=== PATIENT | female | born 1985 | race Caucasian/White ===

== ENCOUNTER → 2022-11-30 08:53 | Outpatient (BNVA) | payer OTHER, SELFPAY | PROVIDERS: PCP Nurse Practitioner Family; Visit Provider Advanced Practice Midwife | DX: Z30.432 Encounter for removal of intrauterine contraceptive device (principal); Z30.09 Encounter for other general counseling and advice on contraception; Z30.011 Encounter for initial prescription of contraceptive pills | CPT/HCPCS: 58301 ==

== ENCOUNTER 2023-03-11 07:59 | Outpatient (REF) | payer OTHER, SELFPAY ==
[2023-03-18 03:19] LABS: HPV mRNA E6/E7 rflx Not Detected (Not Detected)
== END 2023-03-11 08:00 | disposition home or self-care (01) ==
LOC: HO.LNP 07:59
PROVIDERS: PCP Nurse Practitioner Family; Visit Provider Advanced Practice Midwife
DX: Z01.419 Encounter for gynecological examination (general) (routine) without abnormal findings (principal); Z11.51 Encounter for screening for human papillomavirus (HPV)
CPT/HCPCS: 87624; 88142

== ENCOUNTER 2023-03-11 07:59 | Outpatient (AMB) | payer OTHER, SELFPAY ==
--- NOTE | 2023-03-11 08:10 | A.OFFVIS_ITS ---
Intake Vital Signs 03/11/23 08:12 Height 5 ft 4 in Weight 248 lb BMI 42.6 BP 122/76 Intake Visit Reasons: Annual/ 3 month pill check Intake Note: no concerns,last pap 3 yrs ago,normal per pt The patient agreed to use of a medical service technician during this encounter. Scribed for ANN Caldwell by Magda Navarro medical service technician, on 03/11/2023 at 8:30 am EST Cage Shift Manager Required: No Information Interpreted: non-clinical & clinical Surface Grinding Machine Hand: Surface Grinding Machine Hand Present (Tatiana Alfonzo BRANDON) Accompanied by: Self / Same As Patient Allergies No Known Allergies [NO KNOWN ALLERGIES] Allergy (Unknown, Verified 03/11/23 08:23) NONE Is last menstrual period known: Yes HPI HPI Comments History of Present Illness Details She is a premenopausal woman presenting for annual exam. Doing well with no blood or blood bank technician concerns. Hx of depressions, admits to an unhealthy diet. Does not exercise regularly. Currently sexually active. Uses OCP for BC, started in November. Reports daily headaches during active pills, resolved when on placebo week. Regular monthly periods. Takes monthly home HCG tests due to being anxious about . Denies vaginal itching and irritation. STD screening offered; she declines. Last pap smear 3 years ago per patient, no records on file. Denies any changes in medical hx. Patient denies any contraindications to control such as tobacco use, migraines with aura, high blood pressure, liver disease, blood clotting d isorders, DVT and PE. PFSH Medical History Depression with anxiety GERD (gastroesophageal reflux disease) Surgical History Hx of cholecystectomy Family History Maternal Grandmother Throat cancer Maternal Aunt History of breast cancer Mother FH: HTN (hypertension) Social History Household Members: Significant Other Household Members Other:: son Housing: Condominium Alcohol intake: current Alcohol intake frequency: a few times a month Patient Tobacco Use Status: Never used Tobacco Current occupational status: employed Current occupation: [employer] Sexual orientation: Straight/Heterosexual Gender identity: Female Female Reproductive History Menstrual control method: pills Total pregnancies: 1 Full term: 1 Number of Living Children: 1 Review of Systems Const All systems reviewed & are unremarkable except as noted in HPI and below Physical Exam Vital Signs: Last Vital Signs BP 122/76 03/11/23 08:12 BMI result Body Mass Index 42.6 Const General: cooperative, healthy appearing, no acute distress, well developed and alert Orientation/consciousness: patient oriented x3 HEENT Head: Yes normal to inspection Eyes General: appearance normal, both eyes and all related structures Neck Neck: Yes normal visual inspection Thyroid: Thyroid normal Chest Chest palpation & inspection: normal inspection of the chest Breast/axilla inspection: normal inspection of the breasts (no puckering, di mpling, peau de orange, retraction, discharge, masses) Breast/axilla palpation: normal palpation of the breasts Resp Effort & Inspection: normal respiratory effort GI Inspection: Yes normal to inspection Palpation (GI): Soft to palpation Rectal Exam - Female: deferred General: Yes bladder normal to palpation External Female Exam: normal external appearance and normal appearance of the urethra Speculum Exam - Vagina: normal appearance of the vagina, normal palpation and normal vaginal discharge Speculum Exam - Cervix: normal appearance of the cervix, normal palpation and Other cervical findings present (bled with pap) Bimanual exam- vagina & uterus: normal bimanual exam, normal palpation, uterine size normal, bladder normal to palpation and normal palpation Bimanual Exam- Adnexa, other: normal adnexae and no masses Skin General skin exam: no rashes or lesions noted Neuro General: patient oriented x3 Cognition (Neuro): normal cognition Extrem General: Yes normal to inspection Psych Attitude: cooperative Thought process: Normal thought process present Assessment & Plan Assessment & Plan (1) Encounter for well woman exam: Code(s): Z01.419 - Encounter for gynecological examination (general) (routine) without abnormal findings Plan: Discussed: Current recommendations for pap smears per ASCCP guidelines. Breast awareness and periodic self breast exams. Maintaining a healthy lifestyle including a well balanced diet and routine exercise. Encouraged patient to sign up for patient portal. All of her questions and concerns were addressed to the best of my ability. RTO in one year for AG. (2) Surveillance of contraceptive pill: Code(s): Z30.41 - Encounter for surveillance of contraceptive pills Plan: Recommended switching to POP to help prevent headaches. Reviewed use, side effects and warning of OCP, including ACHES. She was instructed to go to ER if she develops loss of vision, severe headache that does not resolve, chest pain, difficulty breathing, abdominal pain, or severe pain or tenderness in extremity. She will call the office with any concerns. Discussed efficacy of POP and encouraged keeping track of menses. Take home HCG test with any missed menses. Contact office if headaches do not improve or with any concerns. RTO for pill check in 3 months. (3) Frequent headaches: Code(s): R51.9 - Headache, unspecified Orders: Orders Pap Smear Today Z01.419 - Encounter for gynecological examination (general) (routine) without abnormal findings Medications: New norethindrone (contraceptive) (So) 0.35 mg PO DAILY 90 tabs 1RF 90 days Discontinued desogestrel-ethinyl estradiol 0.15-0.03 mg (Apri) Discontinued Reason: No Longer Medically Relevant 1 tab PO DAILY 28 days 28 tabs 3RF Coding Level of Care Code Est Pt Prev Care 18-39y(80757) Diagnoses Encounter for well woman exam Z01.419 Surveillance of contraceptive pill Z30.41 Frequent headaches R51.9
[2023-03-11 08:12] VITALS: BP 122/76; BMI 42.6
== END 2023-03-11 08:52 | disposition home or self-care (01) ==
LOC: HO.HWS 07:59
PROVIDERS: PCP Nurse Practitioner Family; Visit Provider Advanced Practice Midwife
DX: Z01.419 Encounter for gynecological examination (general) (routine) without abnormal findings (principal); R51.9 Headache, unspecified
CPT/HCPCS: 99395

== ENCOUNTER 2023-07-12 07:40 | Outpatient (AMB) | payer OTHER, SELFPAY ==
--- NOTE | 2023-07-12 07:42 | A.OFFVIS_ITS ---
Intake Vital Signs 07/12/23 07:43 Height 5 ft 4 in Weight 258 lb BMI 44.3 BP 120/84 Intake Visit Reasons: Pill check Intake Note: Scribed for Aleja Mcclain CNM by Jonathan Snow medical review coordinator, on 07/12/23 at 7:55 AM, EST Allergies No Known Allergies [NO KNOWN ALLERGIES] Allergy (Unknown, Verified 07/12/23 07:43) NONE HPI HPI Comments History of Present Illness Details Patient presents for a pill check of her BC. She is on So. She says she is doing well, with no complaints. She says her headaches have improved since she switched to So. She had questions involving BC and their affects of weight gain. She reports exercising 4-5X weekly and reducing her daily food intake, but she has been struggling to lose any weight. She is currently using a phone rip to help her manage her diet. She has to go for metabolic labs soon. She is on an antidepressant and is concerned if this is having an effect as well. [facility] Medical History Depression with anxiety GERD (gastroesophageal reflux disease) Surgical History Hx of cholecystectomy Family History Maternal Grandmother Throat cancer Maternal Aunt History of breast cancer Mother FH: HTN (hypertension) Social History Household Members: Significant Other Household Members Other:: son Housing: Condominium Alcohol intake: current Alcohol intake frequency: a few times a month Patient Tobacco Use Status: Never used Tobacco Current occupational status: employed Current occupation: [employer] Sexual orientation: Straight/Heterosexual Gender identity: Female Female Reproductive History Menstrual control method: pills Review of Systems Const All systems reviewed & are unremarkable except as noted in HPI and below Physical Exam Vital Signs: Last Vital Signs BP 120/84 07/12/23 07:43 BMI result Body Mass Index 44.3 Const General: cooperative, healthy appearing and no acute distress Orientation/consciousness: patient oriented x3 Neuro General: patient oriented x3 Assessment & Plan Assessment & Plan (1) Surveillance of contraceptive pill: Code(s): Z30.41 - Encounter for surveillance of contraceptive pills Plan: Currently on So, doing well. Her headaches has improved since her BC switch. Reviewed use, side effects and warning of OCP, including ACHES. She was instructed to go to ER if she develops loss of vision, severe headache that does not resolve, chest pain, difficulty breathing, abdominal pain, or severe pain or tenderness in extremity. She will call the office with any concerns. Discussed efficacy of POP and encouraged keeping track of menses. Take home HCG test with any missed menses. Refilled BC today, she will RTO for her next annual. (2) Advised about management of weight: Code(s): Z78.9 - Other specified health status Plan: Recommend she continue daily exercise and weight management. Advised to complete ordered metabolic labs. I recommend she check her Vitamin D levels and increase if necessary. Medications: Refilled norethindrone (contraceptive) (So) 0.35 mg PO DAILY 90 days 90 tabs 3RF Coding Level of Care Code Est Pt Level 3 (49150) Diagnoses Surveillance of contraceptive pill Z30.41 Advised about management of weight Z78.9
[2023-07-12 07:43] VITALS: BP 120/84; BMI 44.3
== END 2023-07-12 07:59 | disposition home or self-care (01) ==
PROVIDERS: PCP Nurse Practitioner Family; Visit Provider Advanced Practice Midwife
DX: Z30.41 Encounter for surveillance of contraceptive pills (principal); Z78.9 Other specified health status
CPT/HCPCS: 99213

== ENCOUNTER → 2023-07-12 07:40 | Outpatient (BNVA) | payer OTHER, SELFPAY | PROVIDERS: PCP Nurse Practitioner Family; Visit Provider Advanced Practice Midwife ==

== ENCOUNTER 2024-03-20 08:05 | Outpatient (AMB) | payer OTHER, SELFPAY ==
--- NOTE | 2024-03-20 08:08 | A.OFFVIS_ITS ---
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 Doing well with no concerns. On Macrobid and Azo for UTI symptoms. She reports hot flashes. No cycles while taking Lizzy, history of daily headaches while taking combination OCPs. Happy on [place] and wants to continue. She tries to eat healthy, she admits to not eating healthy. Plan grad school in the fall. Currently is sexually active. She denies vaginal itching and irritation. STI screening offered; she declined. Denies family history of ovarian or colon cancer. Family history of breast cancer maternal aunt. She denies any contraindications to control such as: migraines with aura, history of DVT or pulmonary emboli, high blood pressure, liver disease, thrombolic disorders, Lupus, +SUYAPA, breast cancer, or smoking. Last pap smear 2022, negative. 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 Sexual orientation: Straight/Heterosexual Gender identity: Female Female Reproductive History Menstrual control method: pills Total pregnancies: 1 Full term: 1 Number of Living Children: 1 Date of last pap smear: 03/11/23 (neg pap and hpv) Review of Systems Const All systems reviewed & are unremarkable except as noted in HPI and below Reports as per HPI Eyes Reports no additional complaints ENT Reports no additional complaints Card Reports no additional complaints Resp Reports no additional complaints GI Reports as per HPI and Reports no additional complaints Reports as per HPI Musc Reports no additional complaints Skin/Breast Reports as per HPI Neuro Reports no additional complaints Psych Reports no additional complaints Endo Reports no additional complaints Asa/Lymph Reports no additional complaints Aller/Immun Reports no additional complaints Physical Exam Const General: cooperative, healthy appearing, no acute distress, well developed and alert Orientation/consciousness: patient oriented x3 HEENT Head: Yes normal to inspection Eyes General: appearance normal, both eyes and all related structures Neck Neck: Yes normal visual inspection Thyroid: Thyroid normal Chest Chest palpation & inspection: normal inspection of the chest and other (no puckering, dimpling, peau de orange, retraction, discharge, masses) Breast/axilla inspection: normal inspection of the breasts Breast/axilla palpation: normal palpation of the breasts Resp Effort & Inspection: normal respiratory effort GI Inspection: Yes normal to inspection and Yes obesity Palpation (GI): Soft to palpation Rectal Exam - Female: deferred General: Yes bladder normal to palpation External Female Exam: normal external appearance and normal appearance of the urethra Speculum Exam - Vagina: normal appearance of the vagina, normal palpation and normal vaginal discharge Speculum Exam - Cervix: normal appearance of the cervix and normal palpation Bimanual exam- vagina & uterus: normal bimanual exam, normal palpation, uterine size normal, bladder normal to palpation, normal palpation and non-tender Bimanual Exam- Adnexa, other: no masses Skin General skin exam: no rashes or lesions noted Rashes: no rashes Neuro General: patient oriented x3 Cognition (Neuro): normal cognition Extrem General: Yes normal to inspection Psych Attitude: cooperative Thought process: Normal thought process present Assessment & Plan Assessment & Plan (1) Encounter for well woman exam with routine gynecological exam: Code(s): Z01.419 - Encounter for gynecological examination (general) (routine) without abnormal findings Plan Discussed: Current recommendations for pap smears per ASCCP guidelines. Breast awareness and periodic breast exams. Maintain a healthy lifestyle including a well balanced diet and routine exercise. control hormone use warnings: go to ER if and loss of vision, blindness, severe headache, chest pain or difficulty breathing, severe abdominal pain, or any pain or swelling in an extremity. Mammogram ordered for after her 39th birthday. Follow up with PCP for urinary, labs done outside source not available for TSH advised to follow up with primary care for hot flash symptoms. Patient verbalizes understanding and agrees to the plan of care. She was given opportunity to ask questions and all questions were answered to the best of my ability. RTO in one year for annual customer support engineer examination. This note is constructed using voice recognition software. While every effort has been made to ensure accuracy, performance consultant errors may have been included. Orders: Orders MM tomosynthesis screening BI 04/30/24 Z12.31 - Encounter for screening mammogram for malignant neoplasm of breast Medications: Refilled norethindrone (contraceptive) (So) 0.35 mg PO DAILY 90 days 84 tabs 4RF Coding Level of Care Code Est Pt Prev Care 18-39y(82755) Diagnoses Encounter for well woman exam with routine gynecological exam Z01.419
[2024-03-20 08:09] VITALS: BP 122/80; BMI 44.3
== END 2024-03-20 08:44 | disposition home or self-care (01) ==
PROVIDERS: PCP Nurse Practitioner Family; Visit Provider Advanced Practice Midwife
DX: Z01.419 Encounter for gynecological examination (general) (routine) without abnormal findings (principal)
CPT/HCPCS: 99395

== ENCOUNTER → 2024-03-20 08:05 | Outpatient (BNVA) | payer OTHER, SELFPAY | PROVIDERS: PCP Nurse Practitioner Family; Visit Provider Advanced Practice Midwife ==

== ENCOUNTER 2024-06-23 07:45 | Outpatient (REF) | payer OTHER, SELFPAY ==
--- NOTE | ~2024-06-23 | MM_ITS ---
EXAMINATION: MM SCREENING DIGITAL BREAST TOMOSYNTHESIS, BILATERAL CLINICAL INFORMATION: Screening. Asymptomatic. COMPARISON: Mammography: No priors are available for comparison. TECHNIQUE: Digital breast mammography with tomosynthesis is performed in both the craniocaudal and mediolateral oblique views along with computer-aided detection (CAD). FINDINGS: There are scattered areas of fibroglandular density (ACR BI-RADS breast composition Category b). There are no significant masses, abnormal calcifications, or other abnormalities. MM/MM tomosynthesis screening BI IMPRESSION: No mammographic evidence of malignancy. ASSESSMENT: BI-RADS BI-RADS 1 - Negative RECOMMENDATION: Routine annual mammography screening. 1 year F/U This examination should not preclude the clinical evaluation of a suspicious palpable abnormality. This patient's information was entered into a reminder system with a target due date for their next mammogram. Electronically signed by: Senait Lyn DO 07/02/2024 08:51 AM BENJA
== END 2024-06-23 07:46 | disposition home or self-care (01) ==
LOC: HO.MAMMO 07:45
PROVIDERS: PCP Family Medicine; Visit Provider Advanced Practice Midwife
DX: Z12.31 Encounter for screening mammogram for malignant neoplasm of breast (principal)
CPT/HCPCS: 77063; 77067

== ENCOUNTER → 2024-06-23 08:00 | Outpatient (BNV) | payer OTHER, SELFPAY | PROVIDERS: PCP Family Medicine; Visit Provider Internal Medicine | DX: Z12.31 Encounter for screening mammogram for malignant neoplasm of breast (principal) | CPT/HCPCS: 77063; 77067 ==

== ENCOUNTER 2025-02-06 11:35 | Outpatient (AMB) | payer OTHER, SELFPAY ==
--- NOTE | 2025-02-06 11:38 | MHC.OFFVIS ---
Vital Signs 02/06/25 11:39 02/06/25 12:13 Height 5 ft 4 in Weight 272 lb BMI 46.7 BP 130/84 120/78 Intake Visit Reasons: Menopause Time Study Clerk: Time Study Clerk Present Allergies No Known Allergies [NO KNOWN ALLERGIES] Allergy (Unknown, Verified 02/06/25 11:40) NONE Is last menstrual period known: Yes HPI Comments Details: Patient is here today for a consult due to her perimenopausal symptoms she reports night sweats, increased anxiety, decreased libido, and overactive bladder symptoms. Currently tapering off an SSRI. Takes [place] daily. History of headaches without migraine aura. History of PCOS with a AUB prior to control. Does not want a future . Monitors BP at home, she reports her baseline runs 110s-120s/low 80s. Working on weight loss concerns. She denies any contraindications to control such as: migraines with aura, history of DVT or pulmonary emboli, high blood pressure, liver disease, thrombolic disorders, Lupus, +SUYAPA, breast cancer, or smoking. [facility] Medical History Depression with anxiety GERD (gastroesophageal reflux disease) Surgical History Hx of cholecystectomy Family History Maternal Grandmother Throat cancer Maternal Aunt History of breast cancer Mother FH: HTN (hypertension) Social History Household Members: Significant Other Household Members Other:: son Housing: Condominium Alcohol intake: current Alcohol intake frequency: a few times a month Patient Tobacco Use Status: Never used Tobacco Current occupational status: employed Current occupation: [employer] Sexual orientation: Straight/Heterosexual Gender identity: Female Female Reproductive History Menstrual control method: pills Review of Systems Const All systems reviewed & are unremarkable except as noted in HPI and below Endo Reports no additional complaints Physical Exam Vital Signs: Last Vital Signs BP 130/84 02/06/25 11:39 BMI result Body Mass Index 46.7 Const General: cooperative, healthy appearing and no acute distress Psych Appearance: well kempt Attitude: cooperative Thought process: Normal thought process present Assessment & Plan Assessment & Plan (1) Hot flashes: Code(s): R23.2 - [place] Plan Counseled regarding perimenopausal changes. Options for medication. Trial of DREW's, monitor blood pressure at home, report any creasing trends. control hormone use warnings: go to ER if and loss of vision, blindness, severe headache, chest pain or difficulty breathing, severe abdominal pain, or any pain or swelling in an extremity. Follow up 03/26/2025 for annual exam. The patient expressed understanding and agreement with the plan of care. All of her questions and concerns were addressed to the best of my ability. This note is constructed using voice recognition software. While every effort has been made to ensure accuracy, mold filling operator errors may have been included. Medications: New levonorgestrel-ethinyl estrad 0.15 mg-30 mcg (91) (Jolessa) 1 tab PO DAILY 91 ea 0RF Discontinued norethindrone (contraceptive) (So) Discontinued Reason: No Longer Medically Relevant 0.35 mg PO DAILY 90 days 84 tabs 4RF Coding Level of Care Code Est Pt Level 3 (11059) Diagnoses Hot flashes R23.2
[2025-02-06 11:39] VITALS: BP 130/84; BMI 46.7
[2025-02-06 12:13] VITALS: BP 120/78
== END 2025-02-06 14:24 | disposition home or self-care (01) ==
LOC: HO.HWS 11:35
PROVIDERS: PCP Family Medicine; Visit Provider Advanced Practice Midwife
DX: R23.2 Flushing (principal)
CPT/HCPCS: 99213

== ENCOUNTER 2025-05-08 13:08 | Outpatient (REF) | payer OTHER, SELFPAY ==
[2025-05-08 22:26] LABS: Bacterial Vaginosis PCR NEGATIVE (Negative); Candida Group PCR NOT DETECTED (Not Detect); Candida glab krusei PCR NOT DETECTED (Not Detect); Trichomonas vaginalis PCR NOT DETECTED (Not Detect)
[2025-05-08 23:40] LABS: CT PCR NOT DETECTED (Not Detect.); NG PCR NOT DETECTED (Not Detect.)
== END 2025-05-08 13:09 | disposition home or self-care (01) ==
LOC: HO.LNP 13:08
PROVIDERS: PCP Family Medicine; Visit Provider Advanced Practice Midwife
DX: Z01.419 Encounter for gynecological examination (general) (routine) without abnormal findings (principal); R03.0 Elevated blood-pressure reading, without diagnosis of hypertension; Z12.31 Encounter for screening mammogram for malignant neoplasm of breast; Z20.2 Contact with and (suspected) exposure to infections with a predominantly sexual mode of transmission
CPT/HCPCS: 81515; 87491; 87591

== ENCOUNTER 2025-05-08 13:08 | Outpatient (AMB) | payer OTHER, SELFPAY ==
--- NOTE | 2025-05-08 13:31 | MHC.OFFVIS ---
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 annual exam Intake Note: Here for resource efficiency manager annual and patient on period Healthcare Interpreter Required: No Information Interpreted: non-clinical & clinical Brim Setter: Brim Setter Present (joao) Allergies No Known Allergies (NO KNOWN ALLERGIES) Allergy (Unknown, Verified 05/08/25 13:40) NONE Medication List - Last Reconciled 05/08/25 by Garima Galloway LPN desvenlafaxine succinate ER (Pristiq) 25 mg PO DAILY dextroamphetamine-amphetamine 10 mg (Adderall) 10 mg PO DAILY levonorgestrel-ethinyl estrad 0.15 mg-30 mcg (91) (Jolessa) 1 tab PO DAILY omeprazole 20 mg PO DAILY vibegron (Gemtesa) 75 mg PO DAILY Is last menstrual period known: Yes Last menstrual period: 05/04/25 Post menopausal: No Do you need a note to return to daycare/school/sports/work: No HPI Comments Details: Patient is a premenopausal woman presenting for annual examination. 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 Has [facility] appt. 05/15/25. Recently started meds-Adderal and Pristiq. On Jolessa. She denies any contraindications to control such as: migraines with aura, history of DVT or pulmonary emboli, liver disease, thrombolic disorders, Lupus, +SUYAPA, breast cancer, or smoking. Currently is sexually active. She denies vaginal itching or irritation. STI screening offered; she accepts. She tries to eat healthy and stays active with exercise. Family history of breast cancer. Last pap smear 2022, negative. Mammogram: 2023. 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 Sexual orientation: Straight/Heterosexual Gender identity: Female Female Reproductive History Menstrual Date of last menstrual period: 05/04/25 control method: pills Total pregnancies: 1 Full term: 1 Number of Living Children: 1 Date of last pap smear: 03/11/23 (neg pap and hpv) Date of Mammogram: 06/23/24 (Birad 1) Review of Systems Const All systems reviewed & are unremarkable except as noted in HPI and below Reports as per HPI Eyes Reports no additional complaints ENT Reports no additional complaints Card Reports no additional complaints Resp Reports no additional complaints GI Reports as per HPI and Reports no additional complaints Reports as per HPI Musc Reports no additional complaints Skin/Breast Reports as per HPI Neuro Reports no additional complaints Psych Reports no additional complaints Endo Reports no additional complaints Asa/Lymph Reports no additional complaints Aller/Immun Reports no additional complaints Physical Exam Vital Signs: Last Vital Signs BP 144/80 H 05/08/25 14:43 BMI result Body Mass Index 44.8 Const General: cooperative, healthy appearing, no acute distress, well developed and alert Orientation/consciousness: patient oriented x3 HEENT Head: Yes normal to inspection Eyes General: appearance normal, both eyes and all related structures Neck Neck: Yes normal visual inspection Thyroid: Thyroid normal Chest Chest palpation & inspection: normal inspection of the chest and other (no puckering, dimpling, peau de orange, retraction, discharge, masses) Breast/axilla inspection: normal inspection of the breasts Breast/axilla palpation: normal palpation of the breasts Resp Effort & Inspection: normal respiratory effort GI Inspection: Yes normal to inspection Palpation (GI): Soft to palpation Rectal Exam - Female: deferred General: Yes bladder normal to palpation External Female Exam: normal external appearance and normal appearance of the urethra Speculum Exam - Vagina: normal appearance of the vagina, normal palpation, normal vaginal discharge and vaginal bleeding (small amount) Speculum Exam - Cervix: normal appearance of the cervix and normal palpation Bimanual exam- vagina & uterus: normal bimanual exam, normal palpation, uterine size normal, bladder normal to palpation, normal palpation and non-tender Bimanual Exam- Adnexa, other: no masses OB/external & speculum: vaginal bleeding (small amount) Skin General skin exam: no rashes or lesions noted Rashes: no rashes Neuro General: patient oriented x3 Cognition (Neuro): normal cognition Extrem General: Yes normal to inspection Psych Attitude: cooperative Thought process: Normal thought process present Assessment & Plan Assessment & Plan (1) Encounter for well woman exam with routine gynecological exam: Code(s): Z01.419 - Encounter for gynecological examination (general) (routine) without abnormal findings Plan: Discussed: Current recommendations for pap smears per ASCCP guidelines. Breast awareness and periodic breast exams. Mammogram yearly. Maintain a healthy lifestyle including a well balanced diet and routine exercise. Release records from UroGyne consult. Patient verbalizes understanding and agrees to the plan of care. She was given opportunity to ask questions and all questions were answered to the best of my ability. RTO in one year for annual resource efficiency manager examination. This note is constructed using voice recognition software. While every effort has been made to ensure accuracy, guide alpine errors may have been included. (2) Surveillance for control, oral contraceptives: Code(s): Z30.41 - Encounter for surveillance of contraceptive pills Plan: Discuss blood pressure concerns today, will discontinue combined OCPs, initiate progesterone only brand, she has 2 packs available at home. control hormone use warnings: go to ER if and loss of vision, blindness, severe headache, chest pain or difficulty breathing, severe abdominal pain, or any pain or swelling in an extremity. BP recheck in 2 months. The patient expressed understanding and agreement with the plan of care. All of her questions and concerns were addressed to the best of my ability. This note is constructed using voice recognition software. While every effort has been made to ensure accuracy, guide alpine errors may have been included. (3) Possible exposure to STD: Code(s): Z20.2 - Contact with and (suspected) exposure to infections with a predominantly sexual mode of transmission Plan: chlamydia and BV panel obtained. Await results for final plan of care. (4) Elevated blood pressure reading without diagnosis of hypertension: Code(s): R03.0 - Elevated blood-pressure reading, without diagnosis of hypertension Plan Advised to discuss her concerns of elevated blood pressure with her primary prescriber. Orders: Orders MM tomosynthesis screening BI Today Z12.31 - Encounter for screening mammogram for malignant neoplasm of breast CT NG by PCR Vag/Cerv Today Z01.419 - Encounter for gynecological examination (general) (routine) without abnormal findings Bacterial Vaginosis Panel Today Z01.419 - Encounter for gynecological examination (general) (routine) without abnormal findings Medications: Discontinued levonorgestrel-ethinyl estrad 0.15 mg-30 mcg (91) (Kiley) Discontinued Reason: Patient no longer taking 1 tab PO DAILY 91 ea 0RF Coding Level of Care Code Est Pt Prev Care 40-64y(24141) Diagnoses Encounter for well woman exam with routine gynecological exam Z01.419 Surveillance for control, oral contraceptives Z30.41 Possible exposure to STD Z20.2 Elevated blood pressure reading without diagnosis of hypertension R03.0
[2025-05-08 13:45] VITALS: BP 138/82; BMI 44.8
[2025-05-08 14:43] VITALS: BP 144/80
--- OUTSIDE RECORDS SUMMARY | 2025-05-08 16:09 | XMS_ITS ---
Author Name [facility] Organization Unknown History of Medication Use Medication Directions Dispensed Refills Start Date End Date Stat us amoxicillin-clavulana te (AUGMENTIN) 875-125 MG per tablet Take 1 tablet by mouth 2 (two) times a day. 03/06/2025 active ALPRAZolam (XANAX) 0.25 MG tablet 03/04/2025 active venlafaxine (EFFEXOR-XR) 75 MG 24 hr capsule Take 75 mg by mouth every morning. 02/28/2025 active myrbetriq 50 MG ER tablet Take 50 mg by mouth. 02/22/2025 active levonorgestrel-ethiny l estradiol (SEASONALE) 0.15-0.03 MG per tablet Take 1 tablet by mouth. 02/06/2025 active Problems Problem Status Onset Date Problem Type Date of Resoluti on Source Bitten by mouse, initial encounter active EncounterDiagnosisAct H HCCT Encounters Encounter Type Encounter Reason Primary Diagnosis Location Date Ambulatory Animal Bite Animal Bite [facility] [place] 03/06/2025 Care Team Organization Name Specialty Phone Email Start Date End Da te [email or web address] Alma Marks MD Primary Care 03/06/20252024 [employer] [address] [facility] 03/06/2025 [facility] [place] Alma Marks MD Primary Care 03/06/2025 [facility] NULL Primary Care 03/03/2023 04/16/2024
--- OUTSIDE RECORDS SUMMARY | 2025-05-08 16:09 | XMS_ITS | Encounter Summary ---
Author Organization [facility] Address [address] [facility] [address] [place] [address] Phone Care Team Providers Care Release Manager Name Role Phone Alma Marks MD Primary Care Provider Encounter Details Date Type Department Care Team (Latest Contact Info) Description 11/21/2018 Transcribe Orders [facility] [address] [place] [id number] Gladys De Guzman ARNP Pre-employment health screening examination (Primary Dx) Social History Tobacco Use Types Packs/Day Years Used Date Smoking Tobacco: Never Assessed Comments Unknown Sex and Gender Information Value Date Recorded Sex Assigned at Not on file Legal Sex Female 5:50 PM EST Gender Identity Not on file Sexual Orientation Not on file documented as of this encounter Plan of Treatment Not on file documented as of this encounter Results * Varicella-zoster (VZV) antibody, IgG (11/21/2018 1:58 PM EDT) Varicella Ab(s) Positive Positive [facility] Blood (Blood) 11/21/2018 1:5 8 PM EDT 11/21/2018 2:03 PM EDT us Gladys NAGY NON CULTURE MICROBIOLOGY Fi nal Result [facility] [address] [place] [address] documented in this encounter Visit Diagnoses Diagnosis Pre-employment health screening examination- Primary Health examination of defined subpopulation documented in this encounter Additional Health Concerns Infection Onset Date Last Indicated Resolved Time CoV-Exposed Comment:Recent close contact 03/24/2020 03/24/2020 04/07/2020 4:56 AM EDT documented as of this encounter Care Teams Release Manager Relationship Specialty Start Date End Date Alma Marks MD [address] [place] [phone] PCP - General Family Medicine 11/21/18 documented as of this encounter Additional Source Comments The information contained in this document represents components of the legal health record. It is not the complete legal health record.[facility]
--- OUTSIDE RECORDS SUMMARY | 2025-05-08 16:10 | XMS_ITS | Encounter Summary ---
Author Organization [facility] Address [address] [facility] [address] [place] [address] Phone Care Team Providers Care Automation Analyst Name Role Phone Alma Marks MD Primary Care Provider Encounter Details Date Type Department Care Team (Late st Contact Info) Description 04/06/2021 Procedure Pass [facility], Ct Scan - [facility] [address] [place] [address] Social History Tobacco Use Types Packs/Day Years Used Date Smoking Tobacco: Never Assessed Comments Unknown Sex and Gender Information Value Date Recorded Sex Assigned at Not on file Legal Sex Female 5:50 PM EST Gender Identity Not on file Sexual Orientation Not on file documented as of this encounter Functional Status * Calculated C-SSRS Risk Score (Lifetime/Recent) Answer Date of Assessment Author No Risk Indicated 04/06/2021 8:44 AM EDT Marina Alcazar, MANFRED * [place] Suicide Severity Rating Scale (Screener/Recent Self-Report) Question Answer Date of Assessment Author 1. Wish to be (Past 1 Month) No 021 8:44 AM Marina Lowe, RN 2. Non-Specific Active Suici cecile Thoughts (Past 1 Month) No 04/06/2021 8:44 AM EDT Marina Alcazar , RN 6. Suicidal Behavior (Lifetime) No 8:44 AM EDT Marina Alcazar, RN documented as of this encounter Plan of Treatment Not on file documented as of this encounter Visit Diagnoses Not on filedocumented in this encounter Care Teams Automation Analyst Relationship Specialty Start Date End Date Alma Marks MD [address] [place] [address] PCP - General Family Medicine 11/21/18 documented as of this encounter Additional Source Comments The information contained in this document represents components of the legal health record. It is not the complete legal health record.[facility]
--- OUTSIDE RECORDS SUMMARY | 2025-05-08 16:10 | XMS_ITS | Clinical Summary ---
Author Organization [facility] Address [address] [address] Phone Care Team Providers Care Silver Plater Name Role Phone Alma Marks MD Primary Care Provider Allergies No known active allergies Immunizations Immunization Administration Dates Next Due COVID-19 (Pre-06/20) Pfizer Vaccine, mRNA, PF 06/03/2021,09/09/2020,08/19/2020 Influenza Quadrivalent MDCK Preservative Free IM 07/12/2023 Influenza, Unspecified Formulation 06/08,06/11/2021,06/04/2020,2019 Social History Tobacco Use Types Packs/Day Years Used Date Smoking Tobacco: Never Assessed Education Answer Date Recorded Are you interested in more education? Not on ángel e 01/01/2023 Are you concerned about learning? Not on file 01/01/2023 No 01/01/2023 No 01/01/2023 Digital Access Answer Date Recorded No 01/23/2023 No 01/23/2023 No 01/23/2023 Reliable internet access at home? Not on file 01/23/2023 Device with a working camera? Not on file Comments Unknown Sex and Gender Information Value Date Recorded Sex Assigned at Not on file Legal Sex Female 5:50 PM EST Gender Identity Not on file Sexual Orientation Not on file Last Filed Vital Signs Vital Sign Reading Time Taken Comments Blood Pressure 129/82 04/06/2021 12:28 PM EDT Pulse 75 04/06/2021 8:44 AM EDT Temperature 37 C (98.6 F) 04/06/2021 11:45 AM EDT Respiratory Rate 18 04/06/2021 8:44 AM EDT Oxygen Saturation 100% 04/06/2021 12:28 PM EDT Inhaled Oxygen Concentration - - Weight 109.3 kg (241 lb) 04/06/2021 8:44 AM EDT Height - - Body Mass Index - - Plan of Treatment Health Maintenance Due Date Last Done Comments Adult Td,Tdap Booster 1984 DEPRESSION SCREENING 1996 SMOKING Hx and SMOKELESS TOBACCO SCREENING 1997 HEPATITIS C SCREENING 2002 HIV ONE-TIME SCREENING (18-6 5 YEARS) 2002 PAP SMEAR 2005 COVID-19 VACCINE (2023-2 5 season) 2024 06/03/2021, 09/09/2020, 08/19/2020 MAMMOGRAM 2024 HEPATITIS A VACCINES Aged Out No long er eligible based on patient's age to complete this topic HIB VACCINES Aged Out No longer eligi ble based on patient's age to complete this topic MENINGOCOCCAL VACCINES (ACWY) Aged Out No longer eligible based on patient's age to complete this topic MENINGOCOCCAL VACCINES (B) Aged Out N o longer eligible based on patient's age to complete this topic PNEUMOCOCCAL VACCINES (0-49 years) Aged Out No longer eligible b ased on patient's age to complete this topic Medical Devices Not on file Insurance [facility] CARE [facility] [place] [id number] [facility] CARE [facility] [place] [facility] [place] [facility] [place] [facility] [place] [facility] [place] [facility] [place] [id number] Care Teams Silver Plater Relationship Specialty Start Date End Date Alma Marks MD [address] [place] [address] PCP - General Family Medicine 11/21/18 Additional Source Comments The information contained in this document represents components of the legal health record. It is not the complete legal health record.[facility]
--- OUTSIDE RECORDS SUMMARY | 2025-05-08 16:10 | XMS_ITS | Clinical Summary ---
Author Organization [facility] Address [address] [place] [address] Care Team Providers Care Station Worker Name Role Phone Alma Marks MD Primary Care Provider [phone] Allergies No known active allergies Medications ALPRAZolam (XANAX) 0.25 MG tablet 03/04/2025 Active levonorgestrel-e thinyl estradiol (SEASONALE) 0.15-0.03 MG per tablet Take 1 tablet by mouth. 02/06/2025 Active venlafaxine (EFFEXOR-XR) 75 MG 24 hr capsule Take 75 mg by mouth every morning. 02/28/2025 Active myrbetriq 50 MG ER tablet Take 50 mg by mouth. 02/22/2025 Active Encounters Date Type Department Care Team Description 03/06/2025 11:00 AM EDT Office Visit [facility] [address] [place] [address] Sundar Munroe MD Binkowski, Marley J, PA-C Bitten by mouse, initial encounter (Primary Dx) 03/06/2025 Travel from Last 3 Months Social History Tobacco Use Types Packs/Day Years Used Date Smoking Tobacco: Never Assessed Comments Unknown Sex and Gender Information Value Date Recorded Sex Assigned at Not on file Legal Sex Female 10:59 AM EDT Gender Identity Not on file Sexual Orientation Not on file Last Filed Vital Signs Vital Sign Reading Time Taken Comments Blood Pressure 128/85 03/06/2025 11:12 AM EDT Pulse 98 03/06/2025 11:12 AM EDT Temperature 36.9 C (98.5 F) 03/06/2025 11:12 AM EDT Respiratory Rate 18 03/06/2025 11:12 AM EDT Oxygen Saturation 97% 03/06/2025 11:12 AM EDT Inhaled Oxygen Concentration - - Weight 116 kg (256 lb) 03/06/2025 11:12 AM EDT Height 162.6 cm (5' 4 ) 03/06/2025 11:12 AM EDT Body Mass Index 43.94 03/06/2025 11:12 AM EDT Plan of Treatment Health Maintenance Due Date Last Done Comments Hepatitis C Virus Screening 1984 HIV Screening 1997 DTaP/Tdap/Td Vaccines (1 - Tdap) 2003 Hepatitis B Vaccines (1 of 3 - 19+ 3-dose series) 2003 Pap Smear (Ages 21-65) 2005 HPV Vaccines (1 - 3-dose SCDM series) 2011 COVID-19 Vaccine ( season) 2024 06/03/2021, 09/09/2020, 08/19/2020 Mammogram 2024 Influenza Vaccine 03/29/2025 07/12/2023, , 06/11/2021, Additional history exists Pneumococcal Vaccine: Pediatric (0-5 Years) and At-Risk Patients (6 to 49 Years) Aged Out No longer eligible based on patient's age to complete this topic Insurance [facility] Care Teams Station Worker Relationship Specialty Start Date End Date Alma Marks MD [address] [facility] [place] [address] [facility] - General 03/06/25
== END 2025-05-08 14:57 | disposition home or self-care (01) ==
LOC: HO.HWS 13:08
PROVIDERS: PCP Family Medicine; Visit Provider Advanced Practice Midwife
DX: Z01.419 Encounter for gynecological examination (general) (routine) without abnormal findings (principal); Z30.41 Encounter for surveillance of contraceptive pills; Z20.2 Contact with and (suspected) exposure to infections with a predominantly sexual mode of transmission; R03.0 Elevated blood-pressure reading, without diagnosis of hypertension
CPT/HCPCS: 99396; 99459

== ENCOUNTER 2025-06-29 07:47 | Outpatient (REF) | payer OTHER, SELFPAY ==
--- NOTE | ~2025-06-29 | MM_ITS ---
EXAMINATION: MM SCREENING DIGITAL BREAST TOMOSYNTHESIS, BILATERAL CLINICAL INFORMATION: Screening. Asymptomatic. COMPARISON: Mammography: Comparison is made with available priors TECHNIQUE: Digital breast mammography with tomosynthesis is performed in both the craniocaudal and mediolateral oblique views along with computer-aided detection (CAD). FINDINGS: There are scattered areas of fibroglandular density. There are no significant masses, abnormal calcifications, or other abnormalities. MM/MM tomosynthesis screening BI IMPRESSION: No mammographic evidence of malignancy. ASSESSMENT: BI-RADS Category 1: Negative RECOMMENDATION: Routine annual mammography screening. 1 year F/U This examination should not preclude the clinical evaluation of a suspicious palpable abnormality. This patient's information was entered into a reminder system with a target due date for their next mammogram. Electronically signed by: Senait Lyn DO 07/02/2025 03:43 PM BENJA
--- OUTSIDE RECORDS SUMMARY | 2025-06-29 07:50 | XMS_ITS | Clinical Summary ---
Author Organization [facility] Address [address] [address] Phone Care Team Providers Care Loans Officer Name Role Phone Alma Marks MD Primary [...] HEPATITIS C SCREENING 2002 HIV ONE-TIME SCREENING (18-65 YEARS) 2002 PAP SMEAR 2005 MAMMOGRAM 2024 INFLUENZA VACCINE (#1) 2025 3, 06/08/2022, 06/11/2021, Additional history exists COVID-19 VACCINE ( season) 2025 06/03/2021, 09/09/2020, 08/19/2020 HEPATITIS A VACCINES Aged Out No long [...] (0-49 years) Aged Out No longer eligible based on patient's age to complete this topic Medical Devices Not on file Insurance [facility] [place] [id number] [place] [address] [place] [id number] [facility] [place] [phone] [place] [address] [place] [id number] [facility] [place] [id number] [facility] [place] [facility] [place] [place] [address] [place] [facility] [place] [id number] Care Teams Loans Officer Relationship Specialty Start Date End Date Alma Marks MD [address] [place] [id number] PCP - General Family Medicine 11/21/18 Additional Source Comments The information contained in this document represents components of the legal health record. It is not the complete legal health record.[facility]
--- OUTSIDE RECORDS SUMMARY | 2025-06-29 07:50 | XMS_ITS | Encounter Summary ---
Author Organization [facility] Address [address] [employer] [facility] [address] [place] [phone] Phone Care Team Providers Care Cutlery Grinder Name Role Phone Alma Marks MD Primary Care Provider Encounter Details Date Type Department Care Team (Late st Contact Info) Description 04/06/2021 Procedure Pass [facility], Ct Scan - [facility] [address] [place] [address] Social History Tobacco Use Types Packs/Day Years [...] 8:44 AM EDT Marina Alcazar, MANFRED * [place] Suicide Severity Rating Scale (Screener/Recent Self-Report) Question [...] on filedocumented in this encounter Care Teams Cutlery Grinder Relationship Specialty Start Date End Date Alma Marks MD [address] [place] [phone] PCP - General Family Medicine 11/21/18 documented as of this encounter Additional Source Comments The information contained in this document represents components of the legal health record. It is not the complete legal health record.[facility]
--- OUTSIDE RECORDS SUMMARY | 2025-06-29 07:50 | XMS_ITS | Clinical Summary ---
Author Organization [facility] Address [address] [place] [address] Care Team Providers Care Blending Machine Operator Name Role Phone Alma Marks MD Primary Care Provider [phone] Allergies No known active allergies Medications ALPRAZolam (XANAX) 0.25 MG tablet 03/04/2025 Active levonorgestrel-e thinyl estradiol (SEASONALE) 0.15-0.03 MG per tablet Take 1 tablet by mouth. 02/06/2025 Active venlafaxine (EFFEXOR-XR) 75 MG 24 hr capsule Take 75 mg by mouth every morning. 02/28/2025 Active myrbetriq 50 MG ER tablet Take 50 mg by mouth. 02/22/2025 Active Social History Tobacco Use Types Packs/Day Years [...] series) 2003 Pap Smear (Ages 21-65) 2005 Mammogram 2024 Influenza Vaccine 03/29/2025 07/12/2023, , 06/11/2021, Additional history exists COVID-19 Vaccine (2024- season) 2025 06/03/2021, 09/09/2020, 08/19/2020 HPV Vaccines (No Doses Required) Completed Pneumococcal Vaccine: Pediatric (0-5 Years) and At-Risk Patients (6 to 49 Years) Aged Out No longer eligible based on patient's age to complete this [place] [id number] [facility] [place] [id number] Care Teams Blending Machine Operator Relationship Specialty Start Date End Date Alma Marks MD [facility] [address] [place] [address] PCP - General 03/06/25
--- OUTSIDE RECORDS SUMMARY | 2025-06-29 07:50 | XMS_ITS | Encounter Summary ---
Author Organization [facility] Address [address] [facility] [address] [place] [address] Phone Care Team Providers Care Exercise Manager Name Role Phone Alma Marks MD Primary Care Provider Encounter Details Date Type Department Care Team (Latest Contact Info) Description 11/21/2018 Transcribe Orders [facility] Laboratory [address] [place] [id number] Gladys De Guzman ARNP Pre-employment health screening [...] 1:58 PM EDT) Varicella Ab(s) Positive Positive [facility] Blood (Blood) 11/21/2018 1:5 8 PM EDT 11/21/2018 2:03 PM EDT us Gladys NAGY NON CULTURE MICROBIOLOGY Fi nal Result [facility] [address] [place] [address] documented in this encounter Visit Diagnoses Diagnosis Pre-employment health screening examination- Primary Health examination of defined subpopulation documented in this encounter Additional Health Concerns Infection Onset Date Last Indicated Resolved Time CoV-Exposed Comment:Recent close contact 03/24/2020 03/24/2020 04/07/2020 4:56 AM EDT documented as of this encounter Care Teams Exercise Manager Relationship Specialty Start Date End Date Alma Marks MD [address] [place] [phone] PCP - General Family Medicine 11/21/18 documented as of this encounter Additional Source Comments The information contained in this document represents components of the legal health record. It is not the complete legal health record.[facility]
== END 2025-06-29 07:48 | disposition home or self-care (01) ==
LOC: HO.MAMMO 07:47
PROVIDERS: PCP Family Medicine; Referring Provider Advanced Practice Midwife; Visit Provider Family Medicine
DX: Z12.31 Encounter for screening mammogram for malignant neoplasm of breast (principal)
CPT/HCPCS: 77063; 77067

== ENCOUNTER → 2025-06-29 08:00 | Outpatient (BNV) | payer OTHER, SELFPAY | PROVIDERS: PCP Family Medicine; Referring Provider Advanced Practice Midwife; Visit Provider Internal Medicine | DX: Z12.31 Encounter for screening mammogram for malignant neoplasm of breast (principal) | CPT/HCPCS: 77063; 77067 ==

== ENCOUNTER 2025-07-10 07:38 | Outpatient (AMB) | payer OTHER, SELFPAY ==
--- OUTSIDE RECORDS SUMMARY | 2025-07-10 07:41 | XMS_ITS | Clinical Summary ---
Author Organization [facility] Address [address] [place] [address] Care Team Providers Care Belt Loop Machine Operator Name Role Phone Alma Marks MD Primary Care Provider [phone] Allergies No known active allergies Medications ALPRAZolam [...] complete [place] [id number] [facility] [place] [id number] Care Teams Belt Loop Machine Operator Relationship Specialty Start Date End Date Alma Marks MD [facility] [address] [place] [address] PCP - General 03/06/25
--- OUTSIDE RECORDS SUMMARY | 2025-07-10 07:41 | XMS_ITS | Clinical Summary ---
Author Organization [facility] Address [address] [address] Phone Care Team Providers Care Scow Captain Name Role Phone Alma Marks MD Primary Care Provider Allergies No known active allergies Immunizations Immunization Administration Dates Next Due COVID-19 (Pre-06/20) Pfizer Vaccine, mRNA, PF 06/03/2021,09/09/2020,08/19/2020 Influenza Quadrivalent MDCK Preservative Free IM 07/12/2023 Influenza, Unspecified Formulation 06/08,06/11/2021,06/04/2020,2019 Social History Tobacco Use Types Packs/Day Years Used Date Smoking Tobacco: Never Assessed Education Answer Date Recorded Are you interested in more education? Not on ángle e 01/01/2023 Are you concerned about learning? [...] 2005 MAMMOGRAM 2024 INFLUENZA VACCINE (#1) 2025 , 06/08/2022, 06/11/2021, Additional history exists COVID-19 VACCINE ( season) 2025 06/03/2021, 09/09/2020, 08/19/2020 HEPATITIS A VACCINES Aged Out No long er eligible based on patient's age to complete this topic HIB VACCINES Aged Out No longer eligi ble based on patient's age to complete this topic IPV VACCINES Aged Out No longer eligi ble [...] topic Medical Devices Not on file Insurance [facility] [place] [id number] [facility] Address: [place] [address] [place] [id number] [place] [address] [place] [address] [address] [place] [phone] [place] [address] [facility] Address: [place] [address] [address] [phone] [place] [address] [address] [place] [id number] [facility] [address] [facility] [place] [facility] Care Teams Scow Captain Relationship Specialty Start Date End Date Alma Marks MD [address] [place] [phone] PCP - General Family Medicine 11/21/18 Additional Source Comments The information contained in this document represents components of the legal health record. It is not the complete legal health record.[facility]
--- OUTSIDE RECORDS SUMMARY | 2025-07-10 07:41 | XMS_ITS | Encounter Summary ---
Author Organization [facility] Address [address] [facility] [address] [place] [phone] Phone Care Team Providers Care Call Center Team Leader Name Role Phone Alma Marks MD Primary Care Provider Encounter Details Date Type Department Care Team (Latest Contact Info) Description 11/21/2018 Transcribe Orders [facility] [address] [place] [address] Gladys De Guzman ARNP Pre-employment health screening [...] 1:58 PM EDT) Varicella Ab(s) Positive Positive [facility] Blood (Blood) 11/21/2018 1:5 8 PM EDT 11/21/2018 2:03 PM EDT us Gladys NAGY LAB BLOOD BKR ORDERABLES Fi nal Result [facility] [address] [place] [address] documented in this encounter Visit Diagnoses Diagnosis Pre-employment health screening examination- Primary Health examination of defined subpopulation documented in this encounter Additional Health Concerns Infection Onset Date Last Indicated Resolved Time CoV-Exposed Comment:Recent close contact 03/24/2020 03/24/2020 04/07/2020 4:56 AM EDT documented as of this encounter Care Teams Call Center Team Leader Relationship Specialty Start Date End Date Alma Marks MD [address] [place] [address] PCP - General Family Medicine 11/21/18 documented as of this encounter Additional Source Comments The information contained in this document represents components of the legal health record. It is not the complete legal health record.[facility]
--- OUTSIDE RECORDS SUMMARY | 2025-07-10 07:41 | XMS_ITS | Encounter Summary ---
Author Organization [facility] Address [address] [facility] [address] [place] [phone] Phone Care Team Providers Care Donor Relations Officer Name Role Phone Alma Marks MD Primary Care Provider Encounter Details Date Type Department Care Team (Late st Contact Info) Description 04/06/2021 Procedure Pass [facility], Ct Scan - [facility] [address] [place] [address] Social History Tobacco Use Types Packs/Day Years [...] 8:44 AM EDT Marina Alcazar, MANFRED * Maynard Suicide Severity Rating Scale (Screener/Recent Self-Report) Question [...] on filedocumented in this encounter Care Teams Donor Relations Officer Relationship Specialty Start Date End Date Alma Marks MD [address] [place] [phone] PCP - General Family Medicine 11/21/18 documented as of this encounter Additional Source Comments The information contained in this document represents components of the legal health record. It is not the complete legal health record.[facility]
[2025-07-10 07:47] VITALS: BP 142/86; BMI 45.9
--- NOTE | 2025-07-10 07:47 | A.OFFVIS_ITS ---
Vital Signs 07/10/25 07:47 07/10/25 08:21 Height 5 ft 4 in Weight 267 lb 4 oz BMI 45.9 BP 142/86 H 132/86 Blood Pressure Location Lt brachial Lt brachial Position Sitting Sitting Intake Visit Reasons: BP Check Senior Medical Transcriptionist: Senior Medical Transcriptionist Present Allergies No Known Allergies (NO KNOWN ALLERGIES) Allergy (Unknown, Verified 05/08/25 13:40) NONE Is last menstrual period known: Yes Last menstrual period: 06/10/25 HPI Comments Details: Patient is here today for a follow up blood pressure check. Current Lizzy user. [facility] Medical History (Updated 07/10/25 @ 08:11 by Aleja Mcclain CNM) Depression with anxiety GERD (gastroesophageal reflux disease) Surgical History Hx of cholecystectomy Family History Maternal Grandmother Throat cancer Maternal Aunt History of breast cancer Mother FH: HTN (hypertension) Social History (Updated 07/10/25 @ 08:08 by Aleja Mcclain CNM) Household Members: Significant Other Household Members Other:: son Housing: Condominium Alcohol intake: current Alcohol intake frequency: a few times a month Patient Tobacco Use Status: Never used Tobacco Current occupational status: employed 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 Sexual orientation: Straight/Heterosexual Gender identity: Female Female Reproductive History Menstrual Age of Menarche: 13 Duration of menses: <3 days Date of last menstrual period: 06/10/25 control method: pills Total pregnancies: 1 Full term: 1 Review of Systems Const All systems reviewed & are unremarkable except as noted in HPI and below Endo Reports no additional complaints Physical Exam Vital Signs: Last Vital Signs BP 132/86 07/10/25 08:21 BMI result Body Mass Index 45.9 Const General: cooperative, healthy appearing and no acute distress Psych Appearance: well kempt Attitude: cooperative Thought process: Normal thought process present Assessment & Plan Assessment & Plan (1) Blood pressure check: Code(s): Z01.30 - Encounter for examination of blood pressure without abnormal findings Plan Discussed: Lifestyle changes including dietary and exercise. Follow up with primary care for further evaluation and monitoring. Patient has equipment to monitor BP. Continue with the Lizzy. Follow up annual exam February 2026. The patient expressed understanding and agreement with the plan of care. All of her questions and concerns were addressed to the best of my ability. This note is constructed using voice recognition software. While every effort has been made to ensure accuracy, senior medical transcriptionist errors may have been included. Medications: New duloxetine 30 mg PO DAILY 1 cap 0RF Refilled norethindrone (contraceptive) (So) 0.35 mg PO DAILY 84 tabs 2RF 90 days Coding Level of Care Code Est Pt Level 3 (82169) Diagnoses Blood pressure check Z01.30
[2025-07-10 08:21] VITALS: BP 132/86
== END 2025-07-10 08:55 | disposition home or self-care (01) ==
LOC: HO.HWS 07:39
PROVIDERS: PCP Family Medicine; Visit Provider Advanced Practice Midwife
DX: Z01.30 Encounter for examination of blood pressure without abnormal findings (principal)
CPT/HCPCS: 99213